=== PATIENT | male | born 1970 | race Caucasian/White ===

== ENCOUNTER 2021-10-09 15:44 | Emergency (ER) | payer SELFPAY ==
[~2021-10-09] VITALS: Ht 177.8 cm; Wt 74.8 kg
--- NOTE | 2021-10-09 16:25 | NUR ---
[id number] SLEEPING IN HIS CAR. ADMITS TO [employer]. [employer]. PATIENT IS ALERT, ORIENTED X4. ABLE TO AMBULATE AND MAKE NEEDS KNOWN. VITALS CHECKED. PLACED COMFORTABLY IN BED.
--- NOTE | 2021-10-09 16:30 | NUR ---
URINE SPECIMEN SENT TO LAB
--- NOTE | 2021-10-09 16:30 | NUR ---
SEEN BY EMERSON EDWARDS AT BEDSIDE
--- NOTE | 2021-10-09 17:40 | NUR ---
Patient discharged to home in stable condition. Written and verbal after care instructions given. Patient verbalizes understanding of instruction.
--- NOTE | 2021-10-09 17:47 | NUR ---
PER PATIENT, HE WILL WAIT FOR HIS FRIEND TO PICK HIM UP AT THE WAITING AREA AFTER 30MINS.
[2021-10-09 17:48] VITALS: BP 116/84
== END 2021-10-09 17:49 | disposition home or self-care (01) ==
LOC: ER 15:50
DX: F10.121 Alcohol abuse with intoxication delirium (principal); Y90.9 Presence of alcohol in blood, level not specified